=== PATIENT | female | born 1990 | race Caucasian/White ===

== ENCOUNTER 2020-08-24 19:40 | Emergency (ER) | payer OTHER ==
[~2020-08-24] VITALS: Ht 170.2 cm; Wt 86.2 kg
[2020-08-24 21:05] VITALS: BP 220/101
== END 2020-08-24 21:07 | disposition left against medical advice (07) ==
LOC: M.ERS 19:40
DX: M54.5 Low back pain (principal); Z98.890 Other specified postprocedural states; Z90.711 Acquired absence of uterus with remaining cervical stump